=== PATIENT | male | born 1955 | race Caucasian/White ===

== ENCOUNTER → 2017-03-17 | Outpatient (CLI) | payer MEDICARE ==
[~2017-03-17] MED LIST: AFRIN15 ML NOSE; ALKALETE PO; AMBROTOSE PO; ASCORBIC ACID500 MG PO; ASPIRIN EC81 MG PO; ASPIRIN325 MG; CEFADROXIL1 GM PO; CLARITIN10 MG PO; CPAP; DIGOXIN; GEMFIBROZIL600 MG PO; GLUCOPHAGE500 MG; GLUCOPHAGE500 MG PO; INDERAL LA60 MG; INDERAL LA60 MG PO; IRON65; IRON65 PO; LANOXIN (DIGI250 MCG PO; LIDEX 0.05%15 GM; LIPITOR80 MG PO; LOPID600 MG; LOVAZA1 GM; MIRAPEX0.25 MG; MOTRIN INF40 MG/1 ML; NASONEX NASAL S17 GM; NORCO 10-325 T1 EACH; NORCO 10-325 T1 EACH PO; NORVASC10 MG PO; NORVASC5 MG; OMEGA 3 500 SO1 EACH PO; PRENATAL 1+1)(P1 TAB; PRILOSEC10 MG; PRILOSEC20 MG PO; PROZAC40 MG; PROZAC40 MG PO; SLO-NIACIN250 MG; SLO-NIACIN500 MG PO; TAB-A-VITE1 EACH PO; VITAMIN C60 MG; VITAMIN D1000 UNIT; VITAMIN D1000 UNIT PO; ZYRTEC10 MG
== END ==
LOC: LGSMG 17:08
DX: L03.115 Cellulitis of right lower limb (principal); L97.509 Non-pressure chronic ulcer of other part of unspecified foot with unspecified severity

== ENCOUNTER → 2017-03-19 | Outpatient (CLI) | payer MEDICARE | END | disposition disaster alternative care site (69) | LOC: GRAD 11:50 | DX: L03.115 Cellulitis of right lower limb (principal); L97.509 Non-pressure chronic ulcer of other part of unspecified foot with unspecified severity; R93.8 Abnormal findings on diagnostic imaging of other specified body structures | CPT/HCPCS: A9503 ==

== ENCOUNTER 2017-04-15 14:00 | Inpatient (IN) | payer MEDICARE ==
[~2017-04-15] VITALS: Ht 176 cm; Wt 105.4 kg
--- NOTE | ~2017-04-15 | DS ---
PATIENT'S NAME: YANCI PALMA [facility] AGE: 62 Y [address] ROOM: G6313 [place], [place] [address] LOCATION: GPCU ADMIT DATE: 04/20/2017 Discharge Summary DISCHARGE DATE: 04/28/2017 FAMILY PHYSICIAN: Griselda Mueller DO ATTENDING PHYSICIAN: Kianna Tan DIAGNOSES: 1. Stage IV adenocarcinoma of the right colon. 2. Supraventricular tachycardia. 3. Bradycardia. 4. Acute respiratory failure with hypoxia. 5. Sleep apnea. SUMMARY: Stef Palma is a 62-year-old male, who initially was seen in [place] in the emergency room due to recurrent SVT. He mentioned the fact that he has been having abdominal pain and the CT scan was obtained that showed some thickening of the ascending colon with some inflammatory changes of the surrounding fat as well as some enlarged lymph nodes and a small amount of ascites. No other signs for metastatic disease were noted. The patient was seen by Dr. Tan at [facility] in consultation on April 06, 2017. Recommendation for colonoscopy was made along with potential colon resection. The patient proceeded with a colonoscopy on April 08 followed by admission to [facility] on April 20. The patient was admitted to [facility] on the morning of April 20 to undergo a right colon resection with Dr. Tan. Invanz 1 g IV was given preoperatively. Preop hemoglobin was 9.6. Anesthesia opted to give 1 unit of packed red blood cells prior to the start of the procedure. We proceeded with laparoscopy converted to an open right colon resection. The liver biopsy and biopsy of peritoneal implant were obtained during the laparoscopy. Please see Dr. Tan' operative note for specifics. Postoperatively, the usual postop orders were followed with activity as tolerated. He was kept n.p.o., Scott was placed to dependent drainage. Lovenox was ordered for DVT prophylaxis. Morphine ENTRY DRIVER OPERATOR along with IV acetaminophen were ordered for pain control. On postop day 1, the patient's pain was adequately controlled. His hemoglobin was 9.9. Vital signs were stable. His Scott catheter was removed and he was allowed sips of clear liquids. On postop day #2, the patient was noted to have some bradycardia and subsequently had lightheadedness with this. Dr. Walker was consulted. The patient was advanced to clear liquid diet. On postop day 3, the patient continued to do well from a surgical standpoint and his ENTRY DRIVER OPERATOR was discontinued. Atwood and IV Dilaudid were ordered for pain control. A diet was advanced to full liquids. He did have a bout of SVT, which responded to adenosine. The patient was transferred to the progressive care unit following this episode. The patient continued to be followed by Cardiology, and did have a couple other episodes of the SVT. He was advanced to surgical soft diet. He was mobilized. He remained on 2-3 L of oxygen by nasal cannula, PATIENT'S NAME: YANCI PALMA [facility] AGE: 62 Y [address] ROOM: [place] [address] LOCATION: GPCU ADMIT DATE: 04/20/2017 Discharge Summary DISCHARGE DATE: 04/28/2017 FAMILY PHYSICIAN: Griselda Mueller DO ATTENDING PHYSICIAN: Kianna Tan which we were unable to wean off. Respiratory Therapy was asked to evaluate for home O2. Arrangements were made for the patient to discharge home on April 27. DISCHARGE INSTRUCTIONS: Included no restrictions on diet. No heavy lifting. He will follow up with Dr. Tan in eight days for staple removal. An appointment was made with Dr. Sarkar in [place] at [facility] on May 05 for consideration of ablation. He is to follow up with Dr. Mueller in 1-2 weeks and a consultation with Dr. Daley was set up for May 07. DISCHARGE MEDICATIONS: Include; 1. Alkalete one capsule p.o. twice daily. 2. Ambrotose two tablets p.o. daily. 3. Vitamin D3, 1000 units p.o. daily. 4. Norvasc was increased to 10 mg p.o. daily dispensing 30 with 2 refills. 5. Aspirin 81 mg p.o. daily. 6. Lipitor was added, 80 mg p.o. daily dispensing 30 with 2 refills. 7. Gemfibrozil was discontinued. 8. Cefadroxil 500 mg p.o. daily with the last day being July 20. 9. Lanoxin 250 mcg p.o. daily. 10. Prozac 40 mg p.o. daily. 11. Prilosec 20 mg p.o. daily. 12. Inderal LA 60 mg b.i.d. dispensing 60 with 6 refills. 13. Glucophage 500 mg p.o. twice daily. 14. Iron 65 mg p.o. daily. 15. Multivitamin one tablet p.o. daily. 16. Mcrae Helena-3 was discontinued. 17. Ascorbic acid 500 mg p.o. 3 times a day. 18. Claritin 10 mg p.o. daily. 19. Afrin one puff nose twice daily. 20. CPAP device. 21. Prescription for Atwood 10/325 one p.o. q.4 hours p.r.n. pain dispensing 30 with no refills was given. 22. Home O2 was also set up prior to discharge at 2-3 L by nasal cannula. Final pathology results showed adenocarcinoma grade 3/3 of the ascending colon, metastatic adenocarcinoma in 12 of 17 mesenteric lymph nodes. There is metastatic adenocarcinoma in both the liver biopsy and peritoneal biopsy. For specifics on day-to-day care please refer to the hospital chart. SANTIAGO LONG PA-C FOR KIANNA TAN MD PATIENT'S NAME: YANCI PALMA [facility] AGE: 62 Y [address] ROOM: [place] [address] [facility] ADMIT DATE: 04/20/2017 Discharge Summary DISCHARGE DATE: 04/28/2017 FAMILY PHYSICIAN: Griselda Mueller DO ATTENDING PHYSICIAN: Kianna Tan/jairl /[id number] d: 05/05/17 0413 t: 05/06/17 0923, DISCHARGE SUMMARY
--- NOTE | ~2017-04-15 | CON ---
PATIENT'S NAME: YANCI PALMA [facility] AGE: 62 Y [address] ROOM: [place] [address] [facility] ADMIT DATE: 04/20/2017 Consultation DISCHARGE DATE: FAMILY PHYSICIAN: Griselda Mueller DO ATTENDING PHYSICIAN: Jagdish Tan DATE OF CONSULTATION: 04/22/2017 HISTORY OF PRESENT ILLNESS: Mr. Palma is a 62-year-old male patient of Dr. Tan, who had recently a laparoscopic colon mass surgery. Today, he was ambulating, and began to have some nauseas. At that time, it appears as if he was in second-degree and third-degree blocks, with the heart rates in the 20s and 30s. He did not have any syncope. He did become lightheaded and sweaty. The patient has a history of supraventricular tachycardia in the past for a number of years. He has been on propranolol and digoxin. The patient has history of hypertension and elevated cholesterol. He is an ex- smoker. There is no family history of premature coronary artery disease or diabetes. There is no prior history of AR or angina or nitroglycerin use. There is no history of rheumatic fever, heart murmur, heart failure, dilated or enlarged heart, or any diagnosed arrhythmias other than the SVT. 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 There was no paroxysmal nocturnal dyspnea or orthopnea. He denies lightheadedness or dizziness up until now. There is no history of ankle swelling. CURRENT MEDICATIONS: 1. Amlodipine 5 mg a day. 2. Cefadroxil 500 mg a day. 3. Digoxin 250 mg a day. 4. Prozac 40 mg a day. 5. Gemfibrozil 600 mg b.i.d. 6. Metformin 500 mg b.i.d. 7. Propranolol 60 mg once a day. 8. Omeprazole 20 mg a day. 9. Aspirin 325 mg a day. 10. Iron. 11. Multivitamin. 12. Phillips-3. PATIENT'S NAME: YANCI PALMA [facility] AGE: 62 Y [address] ROOM: [place] [address] LOCATION: GPCU ADMIT DATE: 04/20/2017 Consultation DISCHARGE DATE: FAMILY PHYSICIAN: Griselda Mueller DO ATTENDING PHYSICIAN: Jagdish Tan 13. Niacin 500 mg a day. 14. Alkylate and Ambrotose. 15. Ascorbic acid. 16. Vitamin D3. 17. Loratadine. 18. Hydrocodone/acetaminophen two tablets every 4 hours p.r.n. 19. Afrin nasal spray. 20. CPAP. ALLERGIES: NO KNOWN DRUG ALLERGIES. PAST MEDICAL HISTORY: 1. History of multiple trauma and surgeries. 2. Head injury. 3. 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 4. Seasonal allergies. 5. History of tinnitus. 6. History of dentures. 7. History of atrial fibrillation after surgery. 8. Sleep apnea. 9. DJD. 10. Osteomyelitis. 11. GERD. 12. Abdominal pain. SOCIAL HISTORY: The patient is . He denies abusing alcohol. His appetite and weight have been stable. Sleep is fair. FAMILY HISTORY: No premature coronary artery disease. REVIEW OF SYSTEMS: 1. Arthritis. 2. Heartburns. 3. Some depression. PHYSICAL EXAMINATION: VITAL SIGNS: His blood pressure is 120/60, heart rate is in the 60s and regular, respirations are 16, afebrile, and he is on 4 L of oxygen. HEENT: Normal. NECK: Supple with no JVD or thyromegaly or lymphadenopathy or carotid bruit. HEART: PMI is not well located. First and second heart sounds are distant. There are no added sounds or murmurs. PATIENT'S NAME: YANCI PALMA [facility] AGE: 62 Y [address] ROOM: [address] [place] [address] LOCATION: GPCU ADMIT DATE: 04/20/2017 Consultation DISCHARGE DATE: FAMILY PHYSICIAN: Griselda Mueller DO ATTENDING PHYSICIAN: Jagdish Tan CHEST: Clear to auscultation. ABDOMEN: Soft. EXTREMITIES: Revealed no edema. CENTRAL NERVOUS SYSTEM: Intact. ASSESSMENT AND PLAN: A 62-year-old male patient, who had second-degree and third-degree blocks at the time when he was nauseated. I am not sure which one came first. He is currently on digoxin as well as propranolol. He has a history of supraventricular tachycardia as well as atrial fibrillation at the time of surgery. We will rule him out for myocardial infarction, check his TSH, check his digoxin level, and follow up in the morning. Again, I appreciate this opportunity to participate in the care of Mr. Palma. MD VICENTE ROMERO/mallory /[id number] d: 04/23/172 t: 04/27/17 1350, CONSULTATION REPORT
--- NOTE | ~2017-04-15 | CON ---
PATIENT'S NAME: YANCI GORMAN [facility] AGE: 62 Y [address] ROOM: [address] [address] LOCATION: [facility] ADMIT DATE: 04/20/2017 Consultation DISCHARGE DATE: FAMILY PHYSICIAN: Griselda Mueller DO ATTENDING PHYSICIAN: Jagdish Tan DATE OF CONSULTATION: 04/21/2017 REFERRING PHYSICIAN: Jagdish Tan MD REASON FOR CONSULTATION: History of multiple recurrent skin infections in the lower extremity. HISTORY OF PRESENT ILLNESS: This is a 62-year-old gentleman who has been followed by our service in the clinic. I saw him last time on March 17, 2017, for multiple recurrent right leg skin wounds and cellulitis. At that time, the patient had a draining wound on the right great toe, and so I started cefadroxil 500 mg p.o. twice a day and complete a total 14 days followed by 500 mg daily as a chronic prevention. Also, I checked a bone scan of right foot too around March 19, 2017, that mentioned that an abnormal bone scan which showed increased activity at the right great toe, osteomyelitis is not excluded. However, the patient came in to the hospital because they found that the patient had a colon cancer, now had right colon resection and aspiration of ascites and biopsy of peritoneal implant and liver biopsy done, which was done on April 20, 2017. The patient is supposed to come back to me to the clinic today, but now in the hospital, so they asked me to come and check him in the hospital. The patient said the wound on the great toe is all healed. The patient was seen by the [facility], doing great, has been taking cefadroxil 500 mg p.o. once a day. Denies fever or chills. Had a pain in the surgery site. No cough or mucus. ALLERGIES: NO KNOWN DRUG ALLERGIES. PAST MEDICAL HISTORY: History of right lower extremity fracture, multiple surgeries in the past, recurrent cellulitis and skin lesions on the right lower extremity, recently found to have colon cancer, paroxysmal atrial fibrillation, type 2 diabetes, and hypertension. FAMILY HISTORY: Noncontributory. SOCIAL HISTORY: Ex-smoker. PATIENT'S NAME: YANCI GORMAN [facility] AGE: 62 Y [address] ROOM: [address] [address] LOCATION: [facility] ADMIT DATE: 04/20/2017 Consultation DISCHARGE DATE: FAMILY PHYSICIAN: Griselda Mueller DO ATTENDING PHYSICIAN: Jagdish Tan CURRENT MEDICINE: Antibiotic mancini, he has been on cefadroxil 500 mg daily. REVIEW OF SYSTEMS: As above. PHYSICAL EXAMINATION: VITAL SIGNS: Blood pressure 132/71, pulse rate 59, respirations 17, and temperature 97.9. GENERAL: In NAD. HEENT: Conjunctivae pink. Sclerae not icteric. NECK: Supple. LUNGS: Clear to auscultation bilaterally. HEART: Regular rhythm and rate. ABDOMEN: Bowel sounds positive. Wound on dressing. EXTREMITIES: Right lower extremity wound all healed and right great toe wound all heeled. No warmth or swelling noted. SKIN: No rash noted. LABORATORY DATA: White blood cells 8.2, hemoglobin 9.9, and platelets 273. BUN 13 and creatinine 0.6. On 17 of March, right foot culture, nothing grew. Bone scan done on March 19, 2017, showed that abnormal bone scan showed increased activity at the right great toe, osteomyelitis is not excluded. ASSESSMENT AND PLAN: This patient has a history of right leg fracture; multiple surgeries; and then had a recurrent multiple skin infections and wounds, most recently right great toe wound; history of methicillin-sensitive Staphylococcus aureus culture in the past, but this time when I repeated nothing grew. The patient was restarted on cefadroxil on of March 17, 2017, and has been on 500 mg daily as a chronic prophylaxis. The patient now is found to have colon cancer, status post surgery done yesterday and plan to do a chemotherapy too. There is a concern about right great toe osteomyelitis, but the wound healed very well and no signs of active infection at this point, and considering the patient's general condition, we discussed and we decided to continue chronic prophylaxis with cefadroxil, but we increased it to 500 mg p.o. twice a day, especially with anticipating chemotherapy. RECOMMENDATIONS: We will continue p.o. cefadroxil 500 mg twice a day at least for several months and follow up at ID clinic in 1 month, and the patient and family agree with this plan. PATIENT'S NAME: YANCI GORMAN [facility] AGE: 62 Y [address] ROOM: [address] [place], [place] [address] LOCATION: [facility] ADMIT DATE: 04/20/2017 Consultation DISCHARGE DATE: FAMILY PHYSICIAN: Griselda Mueller DO ATTENDING PHYSICIAN: Jagdish Tan FISHONG MD ADAL ROJO/mallory /[id number] d: 04/21/172007 t: 04/22/17 0824, CONSULTATION REPORT
--- NOTE | ~2017-04-15 | ECHO ---
Transthoracic Echocardiography Report (TTE) Demographics Patient Name YANCI GORMAN Date of Study 04/23/2017 Patient Number [id number] Visit Number [id number] Date of 1955 Room Number G6313 Gender Male Number Age 62 year(s) Referring Denise Funez Restaurant Area Director Estephanie Harris RDCS, Physician RVT Ami Ross MD Physician Interpreting Denise Funez Offset Proof Press Operator Physician MD Supervising Ordering Denise Funez MD/MLP Physician Nurse Stress Lease Purchase Driver Conclusions Contractility Score Summary Normal Left Ventricular contractility was noted. Summary Technically difficult exam. The estimated left ventricular ejection fraction is 55-60% with normal internal dimension,EF and WM. Mild concentric left ventricular hypertrophy. The left atrium is mildlyldilated by LA volume index measurement. Moderate mitral annular calcification. Trace TR with with the pulmonary pressures in the mid 30. Procedure Type of Study TTE procedure:2D Echocardiogram, Echo with Contrast. Procedure Date Date: 04/23/2017 Start: 12:16 PM Study Location: Inpatient Portable Technical Quality: Limited visualization due to body habitus. Indications:Bradycardia. Appropriate Use Criteria: 9 Patient Status: Routine Contrast Medium: Definity. Amount - 5 ml HR: 90 bpm BP: 196/105 mmHg M-Mode/2D Measurements LV Diastolic Dimension: 3.99 cm LV Systolic Dimension: 1.98 cm LV Septum Diastolic: 1.08 cm LV PW Diastolic: 1.18 cm Cardiac Output: 9.19 l/min LA volume: 77 ml RV Diastolic Dimension: 3.64 cm LVOT: 2.3 cm LVOT VTI: 24.6 cm LV Stroke volume: 102.16 ml RV Mid: 2.87 cm RV Length: 7.09 cm TAPSE: 2.77 cm TDI-S': 19.1 cm/s Doppler Measurements AV Peak Velocity: 1.67 m/s MV Peak E-Wave: 0.66 m/s AV Peak Gradient: 11.16 mmHg MV Peak A-Wave: 0.87 m/s AV Mean Gradient: 7 mmHg MV E/A Ratio: 0.76 LVOT Peak Velocity: 1.28 m/s MV Deceleration Time: 289 msec TR Velocity:2.73 m/s PV Peak Velocity: 1.07 m/s TR Gradient:29.81 mmHg PV Peak Gradient: 4.58 mmHg Estimated RAP:5 mmHg Estimated PASP: 34.81 mmHg Estimated RVSP: 35 mmHg A' Septal Velocity: 0.11 m/s E' Septal Velocity: 0.06 m/s A' Lateral Velocity: 0.17 m/s E' Lateral Velocity: 0.1 m/s Findings Left Ventricle Mild concentric left ventricular hypertrophy with normal internal dimension,EF and WM. Right Ventricle Normal right ventricle structure and function. Left Atrium The left atrium is mildly dilated by LA volume index measurement. Right Atrium Normal right atrial size. Mitral Valve Moderate mitral annular calcification. Trivial mitral regurgitation by color Doppler. Aortic Valve Normal aortic valve structure and function. Tricuspid Valve Trivial tricuspid regurgitation by color Doppler. Pulmonic Valve Normal pulmonic valve structure and function. Pericardial Effusion No evidence of pericardial effusion. Miscellaneous Visualized portions of the aortic root and ascending aorta appear normal in size. Pleural Effusion No evidence of pleural effusion. Contractility Score LV regional wall motion:(0-Non visualized 1-Normal 2-Hypokinesis 3-Akinesis 4-Dyskinesis 5-Aneurysm) Signature dtt: Dee Dee Walker dtd: 04/23/17 1216 Physician Self Edit
--- NOTE | ~2017-04-15 | OR ---
PATIENT'S NAME: YANCI GORMAN [facility] AGE: 62 Y [address] ROOM: [place] [address] [place] [facility] [place] DATE: 04/20/2017 OR/Procedure Report DISCHARGE DATE: FAMILY PHYSICIAN: Griselda Mueller DO ATTENDING PHYSICIAN: Kianna Tan SURGEON: Kianna Tan MD EXTRUSION PROCESS OPERATOR: Aure Dick PA-C. DATE OF PROCEDURE: 04/20/2017 PREOPERATIVE DIAGNOSIS: Right colon cancer. POSTOPERATIVE DIAGNOSES: 1. Large bulky right colon cancer with extension all the way down to the aorta and some encasement of the aorta. 2. Whtdg-wt-qjquhaha amount of ascites. 3. Multiple liver lesions involving the left and right lobes of the liver that grossly appeared consistent with malignancy. 4. Peritoneal implants consistent with metastatic malignancy. PROCEDURE PERFORMED: 1. Laparoscopic exploration with aspiration of ascites as well as biopsy of peritoneal implant and liver biopsy. 2. Open right colon resection. ANESTHESIA: General endotracheal. ESTIMATED BLOOD LOSS: 100 mL. SPECIMEN: 1. Right colon. 2. Liver biopsy. 3. Peritoneal implant biopsy. REASON FOR PROCEDURE: The patient is a 62-year-old male, who recently had a CT scan showing a right colon mass as well as some enlarged nodes and a small amount of ascites. A colonoscopy confirmed an adenocarcinoma of the ascending colon. We decided to proceed with exploration and resection of this. FINDINGS: On initial laparoscopy, he was noted to have a qqobd-tf-grvahlsw amount of green ascites. Multiple small liver nodules were noted consistent with metastatic disease. The largest was in the right lobe of the liver and measured 2-1/2 cm in diameter. The rest were much smaller than this. Several peritoneal implants were noted in the right upper abdomen. The tumor itself was quite bulky and had essentially one large mass extending all the way down along the vessels, down to the aorta, and partially encompassing the aorta. PATIENT'S NAME: YANCI GORMAN [facility] AGE: 62 Y [address] ROOM: [place] [address] [place] [facility] [place] DATE: 04/20/2017 OR/Procedure Report DISCHARGE DATE: FAMILY PHYSICIAN: Griselda Muellre DO ATTENDING PHYSICIAN: Kianna Tan PROCEDURE IN DETAIL: The patient was taken to the operating suite and placed in a supine position. After general endotracheal anesthesia was obtained, the abdomen was prepped with ChloraPrep and sterilely draped. Marcaine was infiltrated into the incision sites. A small infraumbilical incision was made. The fascia was grasped and elevated and a Veress needle was used to obtain a pneumoperitoneum. A 5-mm trocar was then passed across the abdominal wall. Next, a 5-mm upper midline trocar and a right lower quadrant trocar were both placed under direct visualization. The abdomen was explored, small- to-moderate amount of greenish ascites was noted in the pelvis and along the right paracolic gutter. We aspirated this. We then found several nodules on the surface of the liver, consistent grossly with metastatic disease. These involved both the left and right lobe. We cauterized a piece of the largest one measuring about 2 cm in size and sent this to pathology. Several small implants were noted in the anterior and lateral abdominal wall in the right upper quadrant. We biopsied one of these as well. The tumor was noted to be quite bulky and immobile. It was growing into the omentum from the transverse colon as well as direct growth along the vessels. I decided to go ahead and open at this point. A midline incision was made and extended down through the fascia and peritoneum. The bowel was then packed away from the tumor. The peritoneal attachments along the right side were divided with cautery. The proximal transverse colon was mobilized as well. The terminal ileum was somewhat adherent to the tumor and we freed this up, so that everything was fairly mobile. The duodenum was exposed and carefully protected. We divided the small bowel with a TERESE stapler proximal to where there was any tumor involvement. We then divided the proximal transverse colon. Most of the mesentery was divided with the LigaSure device. The difficulty was where there was direct tumor growth all the way down along the right colic artery and vein and unfortunately this direct tumor growth extended all the way down to the aorta with partial encompassment of the aorta. We ended up placing 2 clamps across this, crushing the tumor and the vessels. Then distal to this, we fired a TA stapler. An 0 Vicryl tie and a 2-0 silk tie were then placed across each of the clamps as they were removed. There was no bleeding from this. This was grossly cutting through tumor again but I did not see any other options at this point. The terminal ileum and proximal transverse colon were easily brought into proximity and a iewk-eb-dgls stapled anastomosis was created with the TERESE. The TA stapler was used to close the staple line. A 3- 0 silk suture was placed at the apex of the anastomosis. The mesenteric defect was then closed with interrupted silk sutures. The abdomen was irrigated and all irrigation was removed. The anastomosis appeared viable and patent. The fascia and peritoneum were closed with looped PDS suture. The skin was irrigated and closed with surgical clips. POSTPROCEDURE PLAN: The patient will be sent to recovery and then to the floor. We will keep him on telemetry. We will gradually await return of PATIENT'S NAME: YANCI GORMAN [facility] AGE: 62 Y [address] ROOM: [place] [address] [place] [facility] [place] DATE: 04/20/2017 OR/Procedure Report DISCHARGE DATE: FAMILY PHYSICIAN: Griselda Mueller DO ATTENDING PHYSICIAN: Kianna Tan bowel function. We will follow up on the pathology report. We will start him on a SCHOOL SUPERVISOR for pain control. KIANNA TAN MD JTM/modl /[id number] CC: Griselda Mueller DO d: 04/20/17 1111 t: 04/22/17 0724, OPERATIVE SUMMARY
[~2017-04-15 14:00] MED LIST changes: -LIPITOR80 MG PO
[2017-04-20 06:46] LABS: BASOPHIL % 0.3 %; EOSINOPHIL # 0.1 K/uL (0.0-0.5); EOSINOPHIL % 0.8 %; HEMATOCRIT 30.5 % (37.0-53.0); HEMOGLOBIN 9.6 g/dL (11.0-16.0); IMMATURE GRANULOCYTE # 0.1 K/uL (0.0-0.3); IMMATURE GRANULOCYTE % 0.7 %; LYMPHOCYTE # 0.7 K/uL (0.8-4.0); LYMPHOCYTE % 9.6 %; MCHC 31.5 gm/dL (32.0-36.5); MCV 85.9 fl (83.0-98.0); MONOCYTE # 0.7 K/uL (0.0-1.0); MPV 8.3 fl (9.4-12.4); NEUTROPHIL # (ANC) 6.1 K/uL (1.4-9.0); NEUTROPHIL % 79.6 %; NRBC % 0 /100WBC (0-0.00); PLATELET COUNT 332 K/uL (150-450); RBC 3.55 M/uL (3.50-5.50); RDW-CV 13.9 % (11.9-14.6); WBC 7.7 K/uL (4.0-11.0)
[2017-04-20 07:10] LABS: ALBUMIN 2.7 gm/dL (3.5-5.0); ALK PHOS 96 IU/L (33-138); ALT 25 IU/L (12-78); ANION GAP 13.7 (10.0-19.0); AST 24 IU/L (10-40); BLOOD UREA NITROGEN 12 mg/dL (6-24); CALCIUM 8.6 mg/dL (8.5-10.5); CHLORIDE 97 mMol/L (96-110); CO2 27 mMol/L (22-32); CREATININE 0.7 mg/dL (0.6-1.3); ESTIMATED GFR (MDRD EQUATION) > 60; POTASSIUM 3.7 mMol/L (3.7-5.1); SODIUM 134 mMol/L (135-145); TOTAL BILIRUBIN 0.4 mg/dL (0.0-1.5); TOTAL PROTEIN 7.4 g/dL (6.0-8.4)
--- NOTE | 2017-04-20 16:08 | NUR ---
Significant Event: Pt is a/o. Cooperative with cares. Received from pacu @ 1340. Will have 2nd hourly vs due @ 1830. [employer] SECURITY TEAM LEAD. ETCO2 monitoring. O2 4L. Using IS. Abd dressing intact with small shadow drainage marked. Scott patent. Pneumatic stockings on. Accuchecks q 6 hr. 04/01. Tele, no calls. Uses cpap @ hs. Follow up:
--- NOTE | 2017-04-21 05:04 | NUR ---
Significant Event: OMAR IS ALERT AND OREINTED X3 AMBULATES WITH GB WALKER AND 1-2 ASSIST. VSS WNL. B/S STILL ABSENT. ON 5L OF O2. MORPHINE SUPPLY CHAIN PROJECT MANAGER PUMP TOOK 23 DEMAND DOSES THIS SHIFT. CPAP HS. ACCUCHECK Q 6 HRS NO INSULIN GIVEN. VELA INTACT YELLOW URINE DRAINING. NPO CHIPS ONLY. IV TO LFA AND R HAND SL. TELE WITH NO CALLS. ABDOMINAL DRESSING INTACT WITH SHAWDOW DRAINAGE MARKED. Follow up:
[2017-04-21 05:35] LABS: HEMATOCRIT 31.4 % (37.0-53.0); HEMOGLOBIN 9.9 g/dL (11.0-16.0); MCH 27.7 pg (27.0-34.0); MCHC 31.5 gm/dL (32.0-36.5); MPV 8.1 fl (9.4-12.4); RBC 3.57 M/uL (3.50-5.50); WBC 8.2 K/uL (4.0-11.0)
[2017-04-21 05:51] LABS: ANION GAP 13.4 (10.0-19.0); BLOOD UREA NITROGEN 13 mg/dL (6-24); CHLORIDE 105 mMol/L (96-110); CO2 23 mMol/L (22-32); CREATININE 0.6 mg/dL (0.6-1.3); ESTIMATED GFR (MDRD EQUATION) > 60; POTASSIUM 4.4 mMol/L (3.7-5.1); SODIUM 137 mMol/L (135-145)
--- NOTE | 2017-04-21 11:06 | NUR ---
Patient seen during hospititalization for colon resection. R) medial great toe wound healed with dry scab. No reddness to bony prominences of bilateral ft/heels. Pt. states he had his boots stretched over bony prominences. No further WOC outpt.
--- NOTE | 2017-04-21 14:34 | NUR ---
Patient is alert and oriented x3. Patient has drsng to R) upper abdomen and drsng to medial lower abdomen, small shadow of drainage outlined on 04/20/17. Titrated O2 from 5L to 1L and stable. PRODUCE ASSOCIATE morphine 1mL continuous, 1mL demand with 6 min lockout. Patient has D5 1/2 NS with KCl at rate of 100mL/hr to L) forearm IV. Physician order for sips of clear liquids and to d/c jordan. at bedside. Ambulated with 1PA. Bowel sounds present, no flatus yet. Q6H accu checks. Telemetry with no calls. Wears CPAP at HS. Follow Up: Ambulation. Void after jordan removal.
--- NOTE | 2017-04-21 14:45 | NUR ---
SPOKE TO PATIENT AND HIS SPOUSE AT THE BEDSIDE. INTRODUCED CM AND OUR ROLE.PATIENT LIVES IN OWN HOME WITH SPOUSE, THE PLAN IS PATIENT WILL RETURN HOME WITH HELP FROM SPOUSE ONCE HE IS READY FOR DISCHARGE. HE HAS ALL HIS DME AND HE DOES NOT ANTICIPATE ANY DISCHARGE NEEDS AT THIS TIME. CM WILL CONT TO FOLLOW NEEDED.
--- NOTE | 2017-04-21 18:11 | NUR ---
I HAVE REVIEWED AND AGREE WITH CHARTING COMPLETED BY [facility] STUDENT JOSE ANGEL CORONADO FROM [phone] DARELL FOUNTAIN
--- NOTE | 2017-04-22 07:15 | NUR ---
Significant Event: ALERT ORIENTATED X3, AMBULATES WITH STANDBY ASSIST GB. LIQUID DIET, ACCUCHECK Q 6 HR. MORPHINE POCKET SETTER PUMP 1 ML CONTINOUS, 1 ML DEMAND 6 MINUTE LOCKOUT, TOOK 22 DOSES WITH 27 REQUESTS. IV RUNNING TO L FA WITH D5 1/2 NS WITH KCL AT 100ML/HR. O2 AT 2L. CPAP AT HS. DRESSING TO UPPER ABDOMEN AND MEDIAL LOWER ABDOMEN DRAINAGE OUTLINED. AT BEDSIDE. Follow up:
--- NOTE | 2017-04-22 19:19 | NUR ---
Significant Event: PT AO. VSS ON 1L O2, AFEBRILE. MORPHINE NURSING CARE ATTENDANT RUNNING 1 DEMAND, 1 CONTINUOUS, 6MIN LOCKOUT. TOTAL 11DEMANDS, 10 DELIVERIES. ETCO2 MONITORING ON. TELEMETRY ON, CALL THIS AM FOR HR OF 32, 3RD DEGREE HEART BLOCK. PT WAS UP AMBULATING WITH STUDENT, BECAUSE LIGHTHEADED, NAUSEATED AND DIAPHORETIC AT THE TIME. MD NOTIFIED- CONSULTED CARDIOLOGY. CONSULT CALLED BY CHARGE NURSE CORNELL, NO MD HAS CAME TO SEE PT OF YET. 2 DRESSING TO PT ABDOMEN, C/D/I. PT REPORTS PASSING FLATUS. Q6 ACCUCHECKS. TOLERATING SMALL AMOUNT OF CLEAR LIQUID DIET. IVF RUNNING TO L FA AT 50ML/HR. SL TO R HAND. AMBULATES WITH 1PA, GAITBELT. AT BEDSIDE. Follow up: CONTINUE TO MONITOR, AMBULATE
--- NOTE | 2017-04-22 19:22 | NUR ---
I HAVE REVIEWED AND AGREE WITH CHARTING COMPLETED BY [facility] STUDENT JOSE ANGEL CORONADO FROM [phone] DARELL FOUNTAIN
--- NOTE | 2017-04-23 02:11 | NUR ---
SIGNIFICANT EVENT: Hypertensive - 154 to 169 over 73 to 86. Other VSS on 2L. Morphine SPORTS FITNESS AND WELLNESS DIRECTOR - 1 continuous, 1 demand, 6 minute lockout. Bilateral PIV's to R) hand, L) FA. L) FA infusing D5 1/2 with 20 KCl. Tele calls during day shift on 04/22/17 indicating periods of bradycardia and heart block. EKG done this evening. Q6h accuchecks. Wears his CPAP from home at HS. 2PA d/t dizziness/nausea when up, this also seems to be when he has the periods of bradycardia. at bedside beginning of shift. Pleasant and cooperative with cares.
[2017-04-23 05:03] LABS: BASOPHIL % 0.3 %; EOSINOPHIL # 0.1 K/uL (0.0-0.5); EOSINOPHIL % 2.2 %; HEMATOCRIT 34.3 % (37.0-53.0); HEMOGLOBIN 10.8 g/dL (11.0-16.0); IMMATURE GRANULOCYTE % 0.7 %; LYMPHOCYTE # 0.6 K/uL (0.8-4.0); LYMPHOCYTE % 9.2 %; MCH 27.1 pg (27.0-34.0); MCHC 31.5 gm/dL (32.0-36.5); MONOCYTE # 0.6 K/uL (0.0-1.0); MONOCYTE % 9.7 %; MPV 8.2 fl (9.4-12.4); NEUTROPHIL # (ANC) 4.7 K/uL (1.4-9.0); NEUTROPHIL % 77.9 %; NRBC % 0 /100WBC (0-0.00); PLATELET COUNT 262 K/uL (150-450); RBC 3.99 M/uL (3.50-5.50); RDW-CV 14.4 % (11.9-14.6)
[2017-04-23 05:18] LABS: ANION GAP 15.6 (10.0-19.0); BLOOD UREA NITROGEN 11 mg/dL (6-24); CALCIUM 8.2 mg/dL (8.5-10.5); CHLORIDE 100 mMol/L (96-110); CO2 24 mMol/L (22-32); CREATININE 0.5 mg/dL (0.6-1.3); ESTIMATED GFR (MDRD EQUATION) > 60; MAGNESIUM 2.2 mg/dL (1.8-2.6); POTASSIUM 3.6 mMol/L (3.7-5.1); SODIUM 136 mMol/L (135-145)
--- NOTE | 2017-04-23 08:31 | NUR ---
A - NUTRITION F/U. K+ 3.6, GLU 117, BUN/[place] PADDER BLINDSTITCH 11/0.5. PT W/ 2+ EDEMA TO BLE. (+) BS AND FLATUS. DIET: CLEAR LIQUID W/ ENSURE CLEAR TID. TOLERATING SIPS. D - AT RISK W/ INADEQUATE ORAL INTAKE R/T DECREASED APPETITE AND LIQUID DIET AEB INTAKE RECORD. I - GOAL: 50% OR BETTER INTAKE DIET ADVANCES. M/E - WILL CONT TO MONITOR ORAL INTAKE DIET ADVANCES. WILL F/U IN 2-4 DAYS.
[2017-04-23 08:44] LABS: BASOPHIL % 0.2 %; EOSINOPHIL # 0.1 K/uL (0.0-0.5); EOSINOPHIL % 1.2 %; HEMATOCRIT 35.6 % (37.0-53.0); HEMOGLOBIN 11.3 g/dL (11.0-16.0); IMMATURE GRANULOCYTE # 0.1 K/uL (0.0-0.3); IMMATURE GRANULOCYTE % 0.9 %; LYMPHOCYTE # 0.6 K/uL (0.8-4.0); LYMPHOCYTE % 9.6 %; MCH 27.3 pg (27.0-34.0); MCHC 31.7 gm/dL (32.0-36.5); MONOCYTE # 0.6 K/uL (0.0-1.0); MONOCYTE % 8.8 %; NEUTROPHIL # (ANC) 5.1 K/uL (1.4-9.0); NEUTROPHIL % 79.3 %; NRBC % 0 /100WBC (0-0.00); PLATELET COUNT 298 K/uL (150-450); RBC 4.14 M/uL (3.50-5.50); RDW-CV 14.4 % (11.9-14.6); WBC 6.5 K/uL (4.0-11.0)
[2017-04-23 09:04] LABS: ANION GAP 14.8 (10.0-19.0); CALCIUM 8.2 mg/dL (8.5-10.5); CHLORIDE 100 mMol/L (96-110); CO2 25 mMol/L (22-32); POTASSIUM 3.8 mMol/L (3.7-5.1); SODIUM 136 mMol/L (135-145)
[2017-04-23 09:12] LABS: ALK PHOS 96 IU/L (33-138); ALT 22 IU/L (12-78); AST 25 IU/L (10-40); BLOOD UREA NITROGEN 12 mg/dL (6-24); CPK 34 IU/L (35-332); CREATININE 0.5 mg/dL (0.6-1.3); ESTIMATED GFR (MDRD EQUATION) > 60; TOTAL BILIRUBIN 0.6 mg/dL (0.0-1.5); TOTAL PROTEIN 6.5 g/dL (6.0-8.4)
[2017-04-23 09:16] LABS: ALBUMIN 2.3 gm/dL (3.5-5.0)
--- NOTE | 2017-04-23 10:12 | NUR ---
D: Tele called around 0755 and states pt is tachycardiac at 152. Upon assessment, pt is diaphoretic/pale, nauseated, and did not feel well. Initial VS were 134/70, 152,24,94% 2l, 97.6. Rapid response initiated at 0800. See VS sign screen for all VS. EKG done, pt having SVT, ICU nurse gave Adenosine 6mg IVP at 0810. Post EKG done, pt back to sinus rythym. Pt did c/o chest pain during conversion but stopped within in a minute or less. BP at 0812 was 183/82 pulse 94. Last bp at 0822 was 145/73 pulse 94, 95% on 2 liters. Did drop to 88% briefly so was on 4 liters for a short amount of time. Did Dc AMPHIBIOUS OPERATIONS OFFICER at 0755 per order. Labs were drawn, see results. notified and came to room before moved to PCU. Candelaria Dick PAC in room and Dr. Roque was notified but in clinic so Dr. Robledo was in room as well. Dressing to lower abd intact with small amt of shadow drainage. Accucheck at 0805 was 140. Pt transfered to PCU at 0910.
[2017-04-23 17:03] LABS: CPK 41 IU/L (35-332)
--- NOTE | 2017-04-23 17:03 | NUR ---
Significant Event: A/OX3, VSS ON 2L PER NC. PT. HAS HAD NO SVT SINCE ARRIVAL TO PCU, HR'S REMAIN IN THE 80-90'S, SBP 140-150'S. 1 TAB OF NORCO & ZOFRAN GIVEN AT 1134. ABDOMINAL SURGICAL INCISION AND RLQ PUCTURE SITE IS CLOSED/STAPLED SHUT, DRESSING REMOVED TODAY PER DR. HEARN. PT. GETS UP 1 ASSIST TO CHAIR, BAG BATH TODAY. ETCO2 HAS REMAINED IN THE 30'S SINCE WHITE GOODS APPLIANCE TECH WAS D/C'D THIS AM. HERE IN ROOM. PT. ATE BITES OF [place] DIET AT 1200. Follow up: CONTINUE WITH POC.
[2017-04-23 21:41] LABS: CPK 35 IU/L (35-332)
[2017-04-24 02:58] LABS: CPK 43 IU/L (35-332)
--- NOTE | 2017-04-24 05:11 | NUR ---
significant event: A/O x 3. Up to bathroom several times througout the night with c/o gas pains. walked in the price to try and releif some of the gas pain as well with little releif. [place] given x 2 with the last time at 0400. D5 1/2ns running at 50ml/hr in the right hand. on 2L nc during the day and c-pap per home settings at [facility].
--- NOTE | 2017-04-24 17:09 | NUR ---
Significant Event: Patient A/O X 3. VSS. BP 170-140's HR 80-60's. O2 titrated down to 1 L when awake. O2 at 92%. Pt. 1x assist with gait belt. Up to bathroom and ambulate in hallway with 1x assist, O2 tank, gait belt and wheelchair. C/O abdomen pain. [place] 2 tab x2 last one @ 1338 and plan to give one before shift change. R) hand PIV has D5 1/2 KCL running @ 50 ml/h. Soft Diet. No BM, having small flatulence. Follow up: Continue patient plan of care. Dr. Barnett in [facility] tomorrow. Encourage ambulation and appetite. Possible discharge 04/26 or 04/27.
--- NOTE | 2017-04-25 04:14 | NUR ---
Patient A/Ox3. VSS on RA during day Cpap at HS. One assist. Up in [place] x2. Lungs clear, refused cpap last night wore 2L O2 instead. Bowels hypoactive, passing little gas, and cramping often. Dolph and ambulation for pain with relief noted. Dolph last at 0330. IV to Rt hand 50ml/hr. DC'd IV in LT forearm do to it being sore. Slept well.
--- NOTE | 2017-04-25 04:18 | NUR ---
Patient A/Ox3. VSS on RA during day and Cpap at HS. One assist was up in halls x2. Lungs clear, refused Cpap last night, wore 2l O2 instead. Bowel sounds hypoactive, passing little gas, c/o abd pain. Walking in halls and norco x2 for abd pain with relief noted. Did have nausea after ambulating in price, zofran given x1 with relief noted. IV to Rt hand 50ml/hr. IV to LT forearm DC do to it being sore. Slept well last night.
[2017-04-25 06:27] LABS: HEMATOCRIT 33.7 % (37.0-53.0); HEMOGLOBIN 10.8 g/dL (11.0-16.0); MCH 27.2 pg (27.0-34.0); MCV 84.9 fl (83.0-98.0); MPV 8.2 fl (9.4-12.4); PLATELET COUNT 266 K/uL (150-450); RBC 3.97 M/uL (3.50-5.50); RDW-CV 14.6 % (11.9-14.6); WBC 8.3 K/uL (4.0-11.0)
[2017-04-25 06:56] LABS: ANION GAP 12.8 (10.0-19.0); BLOOD UREA NITROGEN 13 mg/dL (6-24); CALCIUM 8.3 mg/dL (8.5-10.5); CHLORIDE 101 mMol/L (96-110); CO2 27 mMol/L (22-32); CREATININE 0.5 mg/dL (0.6-1.3); ESTIMATED GFR (MDRD EQUATION) > 60; MAGNESIUM 2.2 mg/dL (1.8-2.6); POTASSIUM 3.8 mMol/L (3.7-5.1); SODIUM 137 mMol/L (135-145)
[2017-04-25 06:57] LABS: ABSOLUTE NEUTROPHIL CT (ANC) 7.5 K/uL (1.4-9.0); LYMPHOCYTE # 0.3 K/uL (0.8-4.0); LYMPHOCYTE % 4 %; MONOCYTE # 0.3 K/uL (0.0-1.0); SEGMENTED NEUTROPHIL # 7.5 K/uL (1.4-9.0); SEGMENTED NEUTROPHIL % 90 %
--- NOTE | 2017-04-25 16:20 | NUR ---
Significant Event: Patient A/O X3. VSS. BP 160-140'S HR 60-80'S. Unable to wean completely off O2. Put back on 1L 02 >90%. Ambulated hallways x2. C/O abdomen pain. [place] 2 tab x 2. Last one @ 1230. Plan to give one before shift change. R) hand PIV has D5 1/2 KCL @ 50ml/h. Poor appitite. No BM. Flatulence when voiding. Follow up: Continue patient plan of care. Encourage ambulation and appetite.
--- NOTE | 2017-04-25 19:06 | NUR ---
At approximately 1826 the patient went into SVT with HR's 160-180's. Patient reports heart felt like it was racing, but denies shortness of breath or chest pain. BP stable. Dr. Robledo notified immediately, and Dr. Yee outside of the room and notified. Rapid called. Patient hooked up to defibrillator pads and 6 mg of Adenosine given and patient converted back into sinus rhythm with HR's 80-90's. SBP remain stable 140-160's. Good reponse and communication with ROSS FURNACE OPERATOR. Dr. Robledo and Dr. Barnett, as well as family, updated on patient condition and situation. No further needs at this time. Day and evening or night nurse supervisor RN's present in the room throughout the rapid and witnessed the SVT. [place] RN 04/25/17
--- NOTE | 2017-04-26 04:16 | NUR ---
Patient A/Ox3. VSS on 3L. One assist. Lungs Clear. Bowel sounds present this am and had a moderate loose BM also passing gas. Abdominal incision CDI and open to air. [place] x2 for abdominal pain. Patient had a RR at change of shift SVT HR 170's, adenosine given converted back to sinus rhythm.
--- NOTE | 2017-04-26 13:16 | NUR ---
1145 Introduced self and CM role to Tal and , Esperanza, who was at bedside. tells me that they are interested in getting some paperwork for power of deputy commonwealth's attorney filled out while he is here. I let her know that we had an Advanced Directive Booklet that they could fill out and then I could see if someone from our nursing informatics analyst. could come down and notorize it for them. Let her know that they would only sign medical paperwork and not anything financial. They were fine with this. I called down to nursing informatics analyst. and left a VM for Chelsea to see if she would be able to come up and notorize things this afternoon. Chelsea called me back and shared with me that she would be able to come up and visit with Tal and around 1330. Both Tal and were fine with this time and will have the booklet complete at that time. Plan for dismissal will be for Tal to return back home with the help of his . They are exploring options for him to start chemo closer to home. tells me that he has all of the DME he should need at home (FWW, tub/shower bench, wheelchair, ramp, grabbars). Also denies any needs for any HHC follow up at this time. Tal does all of his own medications at home and gets them filled at the local pharmacy in [place]. He was doing all of his own ADLs at home as well. He is seen by Dr.Julie Mueller as a PCP. Denies any other questions, needs or concerns. CM to continue to follow and assist. Plan home.
--- NOTE | 2017-04-26 17:08 | NUR ---
Significant Event: Pt. A/O X3. VSS. BP's 120-130's HR 60-80's. Attempted RA. O2 < 90%. 02 on 1 L. Small BM early this am. C/O abdomen pain. [place] x 3. Last one given @ 1632. New order for digoxin. Receiving IV doses today and then will start PO tomorrow. Appetite better today. Follow up: Continue Patient plan of care. Encourage appetite and ambulating. Continue to titrate down to RA.
--- NOTE | 2017-04-27 04:23 | NUR ---
Significant Event: Patient is alert/oriented x3. Vital signs stable. No ectopy noted throughout the shift. Unable to wean to room air, he has required 2-3L O2 throughout the night. [place] (one tab) given almost q.4hr PRN around the clock. Abdominal incisions are open to air and stapled. Patient has active bowel sounds in all 4 quadrants and is passing plenty of gas. IVP Digoxin given last night, will be started on PO Digoxin today. Follow up: Patient will need ablation prior to commencing chemotherapy. Dr. Walker does not think he needs pacemaker. Possible dismissal today or tomorrow.
--- NOTE | 2017-04-27 13:04 | NUR ---
A - NUTRITION F/U. NO NEW LABS. DIET: DIABETIC SOFT W/ ENSURE CLEAR TID. INTAKE 25-50% TYPICALLY. PT W/ 1+ EDEMA TO BLE. D - AT RISK W/ INADEQUATE ORAL INTAKE R/T DECREASED APPETITE AEB INTAKE RECORD. I - GOAL: 50% OR BETTER INTAKE BY DISMISSAL. M/E - 1) WILL CHANGE SUPPLEMENT TO GLUCERNA BID. WILL F/U IN 2-4 DAY IF STILL HERE.
--- NOTE | 2017-04-27 13:26 | NUR ---
Talked with in the hallway. She tells me that they did have Chelsea from acute care nursing assistant come up to help them yesterday with the Advanced Directives booklet, but it wasn't all the way complete yet. She also helped guide them and direct them with other questions that they needed answered. wondered about the 5 Wishes booklet as well. I found a copy of this and did get it to her. She states that the plan is still for Tal to return home as soon as possibly tomorrow.
--- NOTE | 2017-04-27 17:28 | NUR ---
Significant event: A&Ox3. VSS. Qualified for home oxygen. [place] x1. Walked in halls x 2. 2 small BM's. Follow Up: Home tomorrow.
--- NOTE | 2017-04-28 04:21 | NUR ---
Significant Event: Patient is alert/oriented x3. Vital signs are stable. Continues on 2-3L O2. [place] last given around 0030, with relief. Ambulated halls x2, tolerated activity well. Follow up: Dismiss to home today.
[2017-04-28] MEDS ORDERED: LIPITOR80 MG PO (15:05)
--- NOTE | 2017-04-28 16:05 | NUR ---
PATIENT DISMISSED HOME VIA PRIVATE AUTO. EDUCATED ON NEW MEDICATIONS AND DOSAGE CHANGES ON SOME OF HIS MEDICATIONS. POST-COLON RESECTION EDUCATION GIVEN TO PATIENT. REFUSED PNEUMONIA VACCINE. DISCUSSED FOLLOW-UP APPOINTMENTS. MD DISCUSSED WITH PATIENT JOSE BENITEZ IF PATIENT GOES INTO SVT AND WHEN TO GO TO THE ER.
== END 2017-04-28 16:08 | disposition disaster alternative care site (69) | DRG 329 ==
LOC: GMSU 04-20 06:02 → GPCU 04-20 06:02 → GMSU 04-20 13:52 → GPCU 04-23 09:02
PROVIDERS: Internal Medicine; Internal Medicine Interventional Cardiology; ADMIT Surgery
PROC: 0DBF0ZZ Excision of Right Large Intestine, Open Approach (ICD-10-PCS; principal; 2017-04-20)
PROC: 30233N1 Transfusion of Nonautologous Red Blood Cells into Peripheral Vein, Percutaneous Approach (ICD-10-PCS; principal; 2017-04-20)
PROC: 0FB04ZX Excision of Liver, Percutaneous Endoscopic Approach, Diagnostic (ICD-10-PCS; principal; 2017-04-20)
PROC: 0W9J4ZZ Drainage of Pelvic Cavity, Percutaneous Endoscopic Approach (ICD-10-PCS; principal; 2017-04-20)
PROC: B246ZZZ Ultrasonography of Right and Left Heart (ICD-10-PCS; 2017-04-23)
PROC: 3E0234Z Introduction of Serum, Toxoid and Vaccine into Muscle, Percutaneous Approach (ICD-10-PCS; 2017-04-28)
DX: C18.2 Malignant neoplasm of ascending colon (principal); J96.01 Acute respiratory failure with hypoxia; R18.8 Other ascites; C78.7 Secondary malignant neoplasm of liver and intrahepatic bile duct; C78.6 Secondary malignant neoplasm of retroperitoneum and peritoneum; C77.2 Secondary and unspecified malignant neoplasm of intra-abdominal lymph nodes; I10 Essential (primary) hypertension; K76.9 Liver disease, unspecified; R00.1 Bradycardia, unspecified; Z23 Encounter for immunization
CPT/HCPCS: C8929; C9113; J0131; J0153; J1160; J1335; J1650; J2001; J2250; J2270; J2405; J3010; J3480; J7030; J7050; P9016; Q9957

== ENCOUNTER 2017-04-29 13:20 | Inpatient (IN) | payer MEDICARE ==
[~2017-04-29] VITALS: Ht 175.3 cm; Wt 98.2 kg
--- NOTE | ~2017-04-29 | DS ---
PATIENT'S NAME: YANCI GORMAN [facility] AGE: 62 Y [address] ROOM: [address] [place], [place] [address] LOCATION: [facility] ADMIT DATE: 04/29/2017 Discharge Summary DISCHARGE DATE: 05/02/2017 FAMILY PHYSICIAN: Griselda Mueller DO ATTENDING PHYSICIAN: Prema Ace PRINCIPAL DIAGNOSES: 1. Narrow complex tachycardia (need for ablation and the patient is being transferred to [place]). 2. Acute hypoxic respiratory failure. 3. Heart failure with preserved ejection fraction, acute on chronic exacerbation. 4. Hospital-acquired pneumonia. 5. Metastatic colon cancer status post resection. 6. Type 2 diabetes mellitus. 7. Obstructive sleep apnea. HOSPITAL COURSE: This is a 62-year-old gentleman with a recent diagnosis of colon cancer, who underwent resection at [facility] a week or so ago, was admitted with palpitations. He was found to have supraventricular tachycardia. Cardiology was consulted on that. In addition to that, he was found to be in acute exacerbation of heart failure. The patient underwent direct current cardioversion for Cardiology. He was put on IV amiodarone drip to control this SVT, with which we had minimal success. He was also treated with Cardizem drip as well as IV digoxin q.6 hours. He required at least one dose of adenosine to convert it back to the normal rhythm. In this hospitalization, we also got a CAT scan of the chest because of hypoxia, which showed no CT finding of pulmonary embolism, significant worsening of the CT appearance of the chest and abdomen since prior imaging in March 2017, large bilateral pleural effusion collection with adjacent lung consolidation, diffuse reticulonodular opacity in the parenchyma of the both lungs which could reflect extensive metastatic involvement, interstitial edema or infiltrate also contributed observed appearance, mediastinal and bilateral hilar adenopathy is noted, small pericardial effusion, and free fluid in the abdomen. During the course of the hospitalization, he was started on broad- spectrum antibiotics to treat for this pneumonia. He was treated with linezolid as well as meropenem. DISCHARGE MEDICATIONS: He will be discharge on all the hospital medications, which would include; 1. Linezolid. 2. Glucose. 3. Dilaudid. 4. Lidocaine for injections. 5. Ondansetron. PATIENT'S NAME: YANCI GORMAN [facility] AGE: 62 Y [address] ROOM: [address] [address] LOCATION: [facility] ADMIT DATE: 04/29/2017 Discharge Summary DISCHARGE DATE: 05/02/2017 FAMILY PHYSICIAN: rGiselda Mueller DO ATTENDING PHYSICIAN: Prema Ace 6. [place]. 7. Dextrose. 8. Glucagon. 9. Loratadine. 10. Pantoprazole. 11. Bactrim, will be discontinued. 12. Digoxin. 13. Lovenox, prophylactic doses. 14. Prozac. 15. Sliding scale insulin. 16. Amiodarone 200 mg p.o. t.i.d. 17. Aspirin. 18. Atorvastatin. 19. Diltiazem drip. 20. Lasix drip. 21. Meropenem. 22. In addition to that, he will be discharged on linezolid IV b.i.d. Cardiology have spoken to their colleagues in [place] at [facility] and they have accepted the patient graciously. PROGRESS NOTE FROM THE DAY OF THE DISCHARGE SUBJECTIVE: The patient is still short of breath, complaining of palpitations. OBJECTIVE: VITAL SIGNS: Vitals included blood pressure of 151/67, respiratory rate of 20, pulse of 108, temperature 99.4, on 50% of high-flow nasal cannula. HEART: Irregular S1 and S2. No murmurs, gallops, or rubs. LUNGS: Decreased air entry bilaterally. Scattered crackles. ABDOMEN: Soft, nontender, and nondistended. Surgical hari noted. EXTREMITIES: No clubbing, cyanosis, or edema. Left great toe missing. LABORATORY DATA: Notable lab work included white count of 18, hemoglobin of 12, and platelets of 313. Chemical panel showed sodium of 134, creatinine of 1.2, BUN 33, potassium 3.2, chloride 91, and bicarb 27. Procalcitonin elevated to 8 from 4. I spent 35 minutes in discharge planning of this patient. Concerns of the family were addressed and questions were answered to their satisfaction. The patient will be transferred by ambulance given his guarded condition as well as prognosis. PATIENT'S NAME: YANCI GORMAN [facility] AGE: 62 Y [address] ROOM: [id number] [place], [place] [address] LOCATION: GICU ADMIT DATE: 04/29/2017 Discharge Summary DISCHARGE DATE: 05/02/2017 FAMILY PHYSICIAN: Griselda Mueller DO ATTENDING PHYSICIAN: Prema Ace MD VERONICA PONCE/mallory /[id number] d: 05/03/17 0034 t: 05/24/17 1009, DISCHARGE SUMMARY
--- NOTE | ~2017-04-29 | CON ---
PATIENT'S NAME: YANCI PALMA [facility] AGE: 62 Y [address] ROOM: [id number] [place], [place] [address] LOCATION: [facility] ADMIT DATE: 04/29/2017 Consultation DISCHARGE DATE: FAMILY PHYSICIAN: Griselda Mueller DO ATTENDING PHYSICIAN: WALTER ACE This is a 62-year-old male patient of Dr. Ace. Dear Dr. Ace: Thank you for asking me to see Mr. Palma who is a 62-year-old male patient who came into the emergency room. He was released yesterday after his surgery for a right colon mass which was a cancer. It is metastatic cancer, and as a result, he is set up to have chemotherapy started in the near future. However, one of the problems has been his history of SVT which has been longstanding and has not bothered him that very often except after his surgery he had several of those including one day he also had significant bradycardia with 2:1 AV block. The patient had always responded to adenosine. He was initially on Inderal LA 60 mg once a day and digoxin 0.25 mg a day. His digoxin level was subtherapeutic and so I just increased the dose of Inderal before he went home. Apparently, he was not able to get all his medications when he got home and today he developed a rapid heartbeat around 11 o'clock and came into the a ER where adenosine was administered with brief regular sinus rhythm which went right back to the rapid heart rhythm which kept occurring at least two or three times. In the meantime, a CAT scan was done, which revealed no evidence of pulmonary emboli but has reticulonodular shadowing and bilateral pleural effusion, which could be due to congestive heart failure as well. He ruled out for [place] as well, but his heart rate was still 140 to 150 when he came to the floor and his oxygen saturation was low, so he was transferred to the intensive care unit. I tried to contact [facility] warehouse stock clerk whom I had set him up to have ablation therapy within about 10 days. However, they were not available at this point. I have administered intravenous amiodarone for now. His blood pressure is in the 120s to 130s and he is sweaty and somewhat uncomfortable at this time. As mentioned earlier, he had postoperatively when he was nauseated, second- degree and third-degree block. The patient has history of hypertension and elevated cholesterol. He is an ex- smoker. There is no family history of premature coronary artery disease and he is not a diabetic. There is no prior history of [place], angina, or nitroglycerin use. [facility] AGE: 62 Y [address] ROOM: [place] [address] LOCATION: [facility] ADMIT DATE: 04/29/2017 Consultation DISCHARGE DATE: FAMILY PHYSICIAN: Griselda Mueller DO ATTENDING PHYSICIAN: WALTER ACE There is no history of rheumatic fever, heart murmur, congestive heart failure. His CT scan did reveal some calcification of his coronaries as well. MEDICATIONS: His discharge medications include, 1. Inderal LA 60 b.i.d. 2. Digoxin 0.25 mg a day. His other medications are unknown at this time. ALLERGIES: NO KNOWN DRUG ALLERGIES. PAST MEDICAL HISTORY: 1. Multiple traumas and surgeries. 2. Head injuries. 3. Memory problems. 4. Seasonal allergies. 5. History of tinnitus. 6. History of dentures. 7. History of atrial fibrillation after surgery. 8. History of sleep apnea. 9. DJD. 10. Osteomyelitis. 11. GERD. 12. Abdominal pains in the past. SOCIAL HISTORY: The patient is . He denies abusing alcohol. His appetite and weight have been stable. Sleep is poor. FAMILY HISTORY: No premature coronary artery disease. REVIEW OF SYSTEMS: 1. Arthritis. 2. Heartburns. 3. Some depression. PHYSICAL EXAMINATION: GENERAL: On examination, the patient is pale, mildly sweaty, uncomfortable, and does not feel good. VITAL SIGNS: Blood pressure is 120s to 130 systolic, heart rate is in the 140s, respirations are 24. [facility] AGE: 62 Y [address] ROOM: [place] [address] LOCATION: [facility] ADMIT DATE: 04/29/2017 Consultation DISCHARGE DATE: FAMILY PHYSICIAN: Griselda Mueller DO ATTENDING PHYSICIAN: WALTER ACE HEENT: Normal. NECK: Supple with no JVD, thyromegaly, lymphadenopathy, or carotid bruit. HEART: PMI is not well located. First and second heart sounds are regular. There are no added sounds or murmurs. CHEST: Chest examination reveals decreased breath sounds bilaterally. ABDOMEN: Soft, mildly diffusely tender. EXTREMITIES: Reveal trace edema. CENTRAL NERVOUS SYSTEM: Overall appears to be intact. ASSESSMENT: Recurrence of supraventricular tachycardia probably because of beta dami withdrawal. I will give IV amiodarone at this time, rule him out for [place], and recheck his echocardiogram and try to get hold of the warehouse stock clerk to see whether we can ablate him earlier than later. Again, I appreciate this opportunity to participate in the care of Mr. Palma. MD VICENTE ROMERO/mallory /[id number] d: 04/30/17 0001 t: 05/04/17 1644, CONSULTATION REPORT
--- NOTE | ~2017-04-29 | ECHO ---
Transthoracic Echocardiography Report (TTE) Demographics Patient Name YANCI GORMAN Date of Study 04/29/2017 Patient Number [id number] Visit Number [id number] Date of 1955 Room Number G6212 Gender Male Number Age 62 year(s) Referring Denise Funez Pcb Designer Flaquito Mata RVT Physician MD Physician Interpreting Denise Funez Tutoring Clinician Physician MD Supervising Ordering Denise Funez MD/MLP Physician MD Nurse Stress Hot Metal Mixer Operator Helper Conclusions Summary Technically difficult exam. The estimated left ventricular ejection fraction is 55-60%. Small clinically insignificant pericardial effusion. Procedure Type of Study TTE procedure:2D Echocardiogram. Procedure Date Date: 04/29/2017 Start: 06:23 PM Study Location: Inpatient Portable Technical Quality: Poor visualization due to poor acoustical window. Indications:Supraventricular Tachycardia. Patient Status: STAT HR: 140 bpm Contractility Score LV regional wall motion:(0-Non visualized 1-Normal 2-Hypokinesis 3-Akinesis 4-Dyskinesis 5-Aneurysm) Signature dtt: Dee Dee Walker dtd: 04/29/17 1823 Physician Self Edit
--- NOTE | ~2017-04-29 | ER ---
PATIENT'S NAME: YANCI GORMAN [facility] AGE: 62 Y [address] ROOM: [place] [address] LOCATION: GI ADMIT DATE: 04/29/2017 ER/Outpatient Report DISCHARGE DATE: FAMILY PHYSICIAN: Griselda Mueller DO ATTENDING PHYSICIAN: WALTER VINES Time of Arrival: 1320 hours. Time Seen: 1320 hours. IDENTIFICATION: A 62-year-old male. CHIEF COMPLAINT: Rapid heartbeat. HISTORY OF PRESENT ILLNESS: The patient is a 62-year-old male who was just discharged from the hospital yesterday. The patient had right colon cancer, status post right colon resection, aspiration of ascites, biopsy of peritoneum, and liver biopsy per Dr. Tan on April 20. The pathology reports show this to be adenocarcinoma grade 3 of the ascending colon, metastatic adenocarcinoma in 12 of 17 mesenteric lymph nodes. Liver biopsy was positive for metastatic adenocarcinoma and peritoneal biopsy was positive for metastatic adenocarcinoma. During the hospital stay, the patient had several episodes of SVT followed by Dr. Walker, but it was recommended for him to go to [facility] to discuss having an ablation. Today around 1230 hours, the patient developed rapid heart rate, he is short of breath, he does not feel good, he is diaphoretic, but he denies any chest pain. ALLERGIES: NO KNOWN DRUG ALLERGIES. CURRENT MEDICATIONS: 1. Amlodipine 10 mg daily. 2. Cefadroxil 500 mg daily. 3. Digoxin 250 mcg daily. 4. Fluoxetine 40 mg daily. 5. Metformin 500 mg b.i.d. with meals. 6. Propranolol 60 mg b.i.d. 7. Omeprazole 20 mg twice daily. 8. Aspirin 81 mg daily. 9. Iron 65 mg every day. 10. Multivitamin daily. 11. Ascorbic acid 500 mg t.i.d. 12. Alkalete 1 capsule twice daily. PATIENT'S NAME: YANCI GORMAN [facility] AGE: 62 Y [address] ROOM: [place] [address] LOCATION: GI ADMIT DATE: 04/29/2017 ER/Outpatient Report DISCHARGE DATE: FAMILY PHYSICIAN: Griselda Mueller DO ATTENDING PHYSICIAN: WALTER VINES 13. Ambrotose 2 tabs daily. 14. Cholecalciferol 1000 units daily. 15. Loratadine 10 mg daily. 16. Hydrocodone and acetaminophen 2 tablets q.4 hours p.r.n. 17. Afrin Mist twice daily as needed. 18. CPAP. 19. Atorvastatin 80 mg daily. MEDICAL PROBLEMS: Seasonal allergic rhinitis, history of atrial fibrillation, history of SVT, sleep apnea, DJD, osteomyelitis, gastroesophageal reflux disease, and right colon cancer. 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 SOCIAL HISTORY: The patient is . Lives in [place]. Tobacco use, denies. Alcohol use, denies. Drug use, denies. FAMILY HISTORY: No pertinent family history identified. REVIEW OF SYSTEMS: All systems reviewed and negative other than what is noted in the HPI. PHYSICAL EXAMINATION: GENERAL: The patient is a 62-year-old male who appears older than his stated age, very pale and diaphoretic on arrival. VITAL SIGNS: Weight 104 kg, blood pressure 133/77, pulse 152, respirations 22, temperature 97, and saturations 93% on 4 L of O2 per nasal cannula which he has been on since he was discharged home. He was 88% on room air. HEENT: Head: Normocephalic. Eyes: Pupils equal and reactive to light and accommodation. Extraocular movements intact. Nose: Mucosa pink. No lesions. Mouth: No lesions. Pharynx benign. NECK: Supple. No lymphadenopathy. LUNGS: Clear to auscultation. Diminished in the bases. HEART: Tachycardia with a regular rhythm. ABDOMEN: Bowel sounds present. Soft, nondistended. Minimally tender to palpation. Incision clean, dry, and intact with hari. No rebound or guarding. EXTREMITIES: He has trace to 1+ lower extremity edema. No calf tenderness. NEURO: The patient is alert and oriented x4. Cranial nerves 2 through 12 grossly intact. Motor strength 5/5 throughout. Sensation is intact to light PATIENT'S NAME: YANCI GORMAN [facility] AGE: 62 Y [address] ROOM: [place] [address] LOCATION: [facility] ADMIT DATE: 04/29/2017 ER/Outpatient Report DISCHARGE DATE: FAMILY PHYSICIAN: Griselda Mueller DO ATTENDING PHYSICIAN: WALTER VINES. Motor strength 5/5 throughout. EMERGENCY DEPARTMENT COURSE: An IV was initiated. Labs were drawn. An EKG was obtained. SVT at a rate of 145 beats per minute. Diffuse ST-T wave changes. Digoxin level 0.54. ProBNP 337. D-dimer elevated at 15.85. Sodium 133, potassium 3.4, chloride 97, CO2 26, BUN 14, creatinine 0.6, and blood sugar 137. Liver enzymes elevated. Alkaline phosphatase 280, AST 101. Cardiac enzymes negative. Magnesium 2.2. Hemoglobin 12.5, hematocrit 39.2, platelets 561, and white count 14.5 with 81% neutrophils. The patient was given adenosine 6 mg IV and did pause and converted to sinus rhythm, but just briefly. A second dose of 6 mg was given and he did go to sinus rhythm, remained in sinus rhythm in the low 100s for approximately 1 hour and then he again went back to SVT rapid rate 147, was again given adenosine 6 mg with just temporary conversion to sinus rhythm, immediately went back into the SVT. After discussion with Dr. Vines and Dr. Walker, he was given digoxin 0.25 mg IV, Lasix 20 mg IV which was repeated for a total of 40 mg. Initial chest x-ray, 1 view: Increased pulmonary vascularity. CT PE protocol: No CT findings of PE, large bilateral pleural fluid collections with adjacent lung consolidation, diffuse reticulonodular opacity in the parenchyma of both lungs which could reflect extensive neoplastic involvement, interstitial edema or infiltrate could contribute mediastinal and bilateral hilar adenopathy, small pericardial effusion, free fluid in the abdomen increased in volume since prior imaging, possible neoplastic liver involvement. IMPRESSION: 1. Supraventricular tachycardia. Discussed with Dr. Walker multiple times while the patient was here in the emergency room. Dr. Walker will consult. Dr. Vines will admit the patient to the hospital. 2. Metastatic adenocarcinoma of the colon. 3. Large bilateral pleural fluid collections. ER COURSE: As noted above. PLAN: For admission to PCU tele. The patient remained in guarded but stable condition throughout his stay here in the emergency room, and the patient remained chest pain-free and blood pressure of 131/76. Dr. Vines evaluated the patient in the emergency room. Second set of cardiac enzymes was obtained while he was here in the ER. Troponin I less than 0.040. 60 minutes of critical care was provided with this patient in the emergency room. PATIENT'S NAME: YANCI GORMAN [facility] AGE: 62 Y [address] ROOM: [place] [address] LOCATION: [facility] ADMIT DATE: 04/29/2017 ER/Outpatient Report DISCHARGE DATE: FAMILY PHYSICIAN: Griselda Mueller DO ATTENDING PHYSICIAN: WALTER VINES MD SHELLEY BRADEN/mallory /[id number] d: 04/29/17 2338 t: 04/30/17 0712, OUTPATIENT REPORT
--- NOTE | ~2017-04-29 | OR ---
PATIENT'S NAME: YANCI GORMAN [facility] AGE: 62 Y [address] ROOM: [place] [address] LOCATION: [facility] ADMIT DATE: 04/29/2017 OR/Procedure Report DISCHARGE DATE: FAMILY PHYSICIAN: Griselda Mueller DO ATTENDING PHYSICIAN: WALTER VINES SURGEON: Dee Dee Walker MD POULTRY FARM SUPERVISOR: DATE OF PROCEDURE: 04/29/2017 Cardioversion Report INDICATION: SVT with a heart rate of 140, with the patient not feeling well and sweating and requiring more oxygen. DESCRIPTION OF PROCEDURE: After obtaining an informed consent, sedation was given by the nurse financial analyst accountant. Cardioversion was performed using 250 joules with the AP paddle placement in a single shock to regular sinus rhythm. The patient tolerated the procedure well and there were no complications noted. MD VICENTE ROMERO/mallory /[id number] d: 04/29/172356 t: 05/04/17 1646, OPERATIVE SUMMARY
--- NOTE | ~2017-04-29 | HP ---
PATIENT'S NAME: YANCI GORMAN [facility] AGE: 62 Y [address] ROOM: [place] [address] LOCATION: GICU ADMIT DATE: 04/29/2017 History & Physical DISCHARGE DATE: FAMILY PHYSICIAN: Griselda Mueller DO ATTENDING PHYSICIAN: WALTER VINES DATE OF SERVICE: CHIEF COMPLAINT: Palpitations, SVT. HISTORY OF PRESENT ILLNESS: This is a 62-year-old male with history of recurrent SVTs, hypertension, recently diagnosed with metastatic adenocarcinoma of the colon, status post resection just recently, who presents to the emergency room today with complaints of palpitations. The patient reports that shortly after lunch today, he started feeling sensation of racing of his heart, which is something recurrent and has had long history of SVTs. The patient during his hospitalization last week following a surgery was also noted to have recurrent SVTs, which were managed symptomatically and had been in the works to get an outpatient workup and planned ablation. The patient returns today with recurrent symptoms. The patient also complains of increasing shortness of breath as well and mentions some minimal cough but denies any fever or chills related to this. The patient also complains of overall generalized fatigue, weakness, and failure to thrive. As far as his cancer, the patient is recovering from the surgery, and the plan is to pursue chemo if and when he recovers adequately from surgery. Dr. Tan is his surgeon, and he is closely following up with him in that regard. The patient otherwise does report diminished appetite but no nausea, vomiting, or diarrhea reported. No dysuria, frequency, urination symptoms reported as well. PAST MEDICAL HISTORY: 1. Hypertension. 2. Metastatic colon cancer, status post resection. 3. Type 2 diabetes. 4. History of SVTs. 5. GERD. SOCIAL HISTORY: The patient is . Denies use of excessive alcohol or drugs. FAMILY HISTORY: Denies any reports of premature coronary artery disease in family. REVIEW OF SYSTEMS: PATIENT'S NAME: YANCI GORMAN [facility] AGE: 62 Y [address] ROOM: [place] [address] LOCATION: [facility] ADMIT DATE: 04/29/2017 History & Physical DISCHARGE DATE: FAMILY PHYSICIAN: Griselda Mueller DO ATTENDING PHYSICIAN: WALTER VINES Complete review of systems was conducted in all systems and were all negative except as described in the HPI. PHYSICAL EXAMINATION: VITAL SIGNS: Blood pressure 160s over 80s, heart rate in 140 and 160 at the time of my evaluation, respiratory rate 22, and saturating 95% on 2 L of oxygen per nasal cannula. GENERAL: The patient is ill appearing and lethargic, otherwise awake, alert, and oriented. HEENT: The patient exhibits somewhat dry mucous membranes and has some conjunctival pallor but no scleral icterus noted. SKIN: Some mild venous insufficiency with skin changes of the bilateral lower extremities noted. LUNGS: Diminished breath sounds bilaterally as well as diffuse coarse breath sounds, but no wheezing, rales, or rhonchi noted. HEART: Tachycardic, S1 and S2, and regular. ABDOMEN: Mildly tender. Mild distention. Midline surgical scar noted. Positive bowel sounds. MUSCULOSKELETAL: No joint redness, effusion, or swelling noted. NEUROLOGIC: Grossly nonfocal. LABORATORY DATA: Labs reviewed. Significant ones include leukocytosis 14,000. ASSESSMENT AND PLAN: 1. Sustained supraventricular tachycardias. Does have complaints of palpitations but otherwise blood pressure and other vital signs are stable. The patient has long history of supraventricular tachycardias including having few episodes during his last hospitalization last week following his abdominal surgery. The patient was given adenosine 3 times in the ED, it was entirely slowing down the heart rate. The patient was given a dose of IV digoxin and Dr. Walker is following him. The patient had plans to be seen as an outpatient for potential ablation. We will follow along Cardiology's recommendations, and the patient is well known to Dr. Walker as well. 2. Large bilateral pleural effusions. This appears to be related to the patient's abdominal surgery and did not appear to have any clear signs and symptoms of an infectious process. As the white count of 14,000, we will continue to monitor, and I will start him on some p.o. Lasix and continue to monitor progress clinically. We will follow along clinically as far as his leukocytosis and a fever curve to indicate any suspicion for an infectious process underlying. 3. Metastatic colon cancer, status post resection recently. The patient closely follows with Dr. Tan. Plan as of right now appears to pursue chemo once the patient recovers from surgery. PATIENT'S NAME: YANCI GORMAN [facility] AGE: 62 Y [address] ROOM: [place] [address] LOCATION: [facility] ADMIT DATE: 04/29/2017 History & Physical DISCHARGE DATE: FAMILY PHYSICIAN: Griselda Mueller DO ATTENDING PHYSICIAN: WALTER VINES 4. Hypertension. We will keep the close eye on the patient's vital signs and blood pressures and continue his home blood pressure medicines. 5. Type 2 diabetes. We will hold his home metformin and use sliding scale insulin and monitor him. 6. Deep venous thrombosis prophylaxis. We will use heparin 5000 units t.i.d. MD ROSIE CASTILLO/mallory /[id number] D: [id number] T: [id number] HISTORY & PHYSICAL
[~2017-04-29 13:20] MED LIST changes: +LIPITOR80 MG PO
[2017-04-29 13:35] LABS: BASOPHIL % 0.1 %; EOSINOPHIL # 0.1 K/uL (0.0-0.5); EOSINOPHIL % 0.3 %; HEMATOCRIT 39.2 % (37.0-53.0); HEMOGLOBIN 12.5 g/dL (11.0-16.0); IMMATURE GRANULOCYTE # 0.1 K/uL (0.0-0.3); IMMATURE GRANULOCYTE % 0.9 %; LYMPHOCYTE # 1.1 K/uL (0.8-4.0); LYMPHOCYTE % 7.6 %; MCH 26.8 pg (27.0-34.0); MCHC 31.9 gm/dL (32.0-36.5); MCV 83.9 fl (83.0-98.0); MONOCYTE # 1.4 K/uL (0.0-1.0); MPV 8.6 fl (9.4-12.4); NEUTROPHIL # (ANC) 11.7 K/uL (1.4-9.0); NEUTROPHIL % 81.1 %; NRBC % 0 /100WBC (0-0.00); PLATELET COUNT 561 K/uL (150-450); RBC 4.67 M/uL (3.50-5.50); RDW-CV 14.7 % (11.9-14.6); WBC 14.5 K/uL (4.0-11.0)
[2017-04-29 13:41] LABS: INR - (THERAPEUTIC) 1.21 (0.92-1.07); PROTIME 12.7 SECONDS (9.8-11.4); PTT 34 SECONDS (25-32)
[2017-04-29 13:51] LABS: ALBUMIN 2.3 gm/dL (3.5-5.0); ALK PHOS 280 IU/L (33-138); ALT 44 IU/L (12-78); ANION GAP 13.4 (10.0-19.0); AST 101 IU/L (10-40); BLOOD UREA NITROGEN 14 mg/dL (6-24); CALCIUM 8.4 mg/dL (8.5-10.5); CHLORIDE 97 mMol/L (96-110); CO2 26 mMol/L (22-32); CPK 55 IU/L (35-332); CREATININE 0.6 mg/dL (0.6-1.3); ESTIMATED GFR (MDRD EQUATION) > 60; MAGNESIUM 2.2 mg/dL (1.8-2.6); POTASSIUM 3.4 mMol/L (3.7-5.1); SODIUM 133 mMol/L (135-145); TOTAL BILIRUBIN 0.6 mg/dL (0.0-1.5); TOTAL PROTEIN 7.2 g/dL (6.0-8.4)
[2017-04-29 17:45] LABS: BICARBONATE 25.6 mmol/L (18.0-23.0); PCO2 36 mmHg (35-45); PO2 86 mmHg (80-90)
--- NOTE | 2017-04-29 17:56 | NUR ---
Patient arrived to PCU from ED at 1655. Patient transferred from ED cart to bed with 3 assist. Patient c/o weakness, SOB, and palpitations. Patient O2 sats 83% on 6L. RT notified and 15L nonrebreather mask applied. Rapid response called. Lasix 40mg IV given x1 per Dr Ace order. Transferred to ICU at 1720. Patients at bedside and aware of transfer. Report given to ESSIE Mendoza.
[2017-04-30 03:20] LABS: BASOPHIL % 0.1 %; EOSINOPHIL % 0.1 %; HEMATOCRIT 35.4 % (37.0-53.0); HEMOGLOBIN 11.1 g/dL (11.0-16.0); IMMATURE GRANULOCYTE # 0.1 K/uL (0.0-0.3); IMMATURE GRANULOCYTE % 0.9 %; LYMPHOCYTE # 0.5 K/uL (0.8-4.0); LYMPHOCYTE % 4.5 %; MCH 26.7 pg (27.0-34.0); MCHC 31.4 gm/dL (32.0-36.5); MCV 85.1 fl (83.0-98.0); MPV 8.5 fl (9.4-12.4); NEUTROPHIL # (ANC) 9.4 K/uL (1.4-9.0); NEUTROPHIL % 85.4 %; NRBC % 0 /100WBC (0-0.00); RBC 4.16 M/uL (3.50-5.50); RDW-CV 15.1 % (11.9-14.6)
[2017-04-30 03:33] LABS: PLATELET COUNT 289 K/uL (150-450)
[2017-04-30 03:52] LABS: ALK PHOS 235 IU/L (33-138); ALT 52 IU/L (12-78); AST 121 IU/L (10-40); BLOOD UREA NITROGEN 14 mg/dL (6-24); CALCIUM 7.9 mg/dL (8.5-10.5); CHLORIDE 103 mMol/L (96-110); CO2 25 mMol/L (22-32); CREATININE 0.6 mg/dL (0.6-1.3); ESTIMATED GFR (MDRD EQUATION) > 60; MAGNESIUM 2.4 mg/dL (1.8-2.6); SODIUM 136 mMol/L (135-145); TOTAL BILIRUBIN 0.7 mg/dL (0.0-1.5); TOTAL PROTEIN 6.4 g/dL (6.0-8.4)
[2017-04-30 03:54] LABS: ALBUMIN 1.9 gm/dL (3.5-5.0); ANION GAP 12.4 (10.0-19.0); POTASSIUM 4.4 mMol/L (3.7-5.1)
--- NOTE | 2017-04-30 04:16 | NUR ---
Significant Event: Patient given 300mg of amiodarone for HR's of 160's, Afib with RVR [id number], HR's decreased down to 140's. Cardioversion done at 1912 with 250 joules, HR's decreased down into the 90's and have maintained throughout the night. Amiodarone gtt started at 1900, currently at 0.5mg/hr. Lasix gtt started at 5mg/hr. Currently on Bipap at 40% to keep o2 sats >90%. Tmax 99.4. Scott to DD with adeq UOP. [place] given x2 for pain in abd, recent abd surgery. Follow up:possible transfer to [place] for ablation.
--- NOTE | 2017-04-30 15:16 | NUR ---
Stopped in to visit with Tal, his and the rest of the family at bedside. I am familiar with them from him recent stay just this week at [facility]. tells me that they went home and "he just started to feel bad again so here we are." She also says that according to doctors, they are planning on sending Tal to [facility] in [place] on Wednesday for Abilation procedure. They are all in agreement with transfering. Gave resources on [facility] and possible places to stay while she was down there. Tal and family denied any other questions needs or concerns. I also made sure that his chart had the proper dismissal paperwork on it for Sundays' transfer to [facility], packet was also started. Called down to EMS, talked with Chelsea, to give them a heads up that they might have a transfer to [facility] on Wednesday. She states she will write it down and put it on the books. CM to continue to follow and assist.
--- NOTE | 2017-04-30 16:50 | NUR ---
Significant Event: Patient is alert and oriented X3. Heart rate has remained 80-90's in sinus rhythm since cardioversion last night. Amiodarone continues at 0.5mg/min. Lasix gtt increased to 10mg/hr today and urine output is 150-300ml/hr. Blood pressure has tolerated. Plan will be continue to [place] and hopefully transfer to [facility] on Wednesday. Follow up: Susan
--- NOTE | 2017-05-01 04:33 | NUR ---
Significant Event: AAOx3. Moves spontaneously and to command, equal moderate strength throughout. Patient resting in bed throughout shift, turn Q2Hrs. PERRLA 3mm brisk. Systolic 140-170's, HR 90-100's, 1-2+ edema generalized, 1+ pedal pulses. Lung sounds clear and diminished in lower lobes, on BiPAP 30% FiO2 while sleeping otherwise 6L via [place]. on days to keep sats >90%. B.S. active, one large BM this shift. Sutures intact to abdomen, mid-line well approximated and open to air. C/O LUQ mid-line abdominal pain relieved by [place], 2 tabs given at 0230 and Dilaudid IV 0.2mg IVP. PIV L) AC infusing Amiodarone 0.5mg/min. Lasix infusing R) AC 10mL/hr. Scott intact draining anders urine, adequate hourly output 100-300. ADA diet, accuchecks AC/HS. Follow up: CXR this AM, plan for dismissal to [facility] on Wednesday for ablation. Susan.
[2017-05-01 05:24] LABS: HEMATOCRIT 35.3 % (37.0-53.0); HEMOGLOBIN 11.3 g/dL (11.0-16.0); MCV 84.4 fl (83.0-98.0); MPV 8.5 fl (9.4-12.4); PLATELET COUNT 276 K/uL (150-450); RBC 4.18 M/uL (3.50-5.50); RDW-CV 15.3 % (11.9-14.6)
[2017-05-01 05:38] LABS: BLOOD UREA NITROGEN 18 mg/dL (6-24); CALCIUM 7.9 mg/dL (8.5-10.5); CHLORIDE 99 mMol/L (96-110); CO2 28 mMol/L (22-32); CREATININE 0.8 mg/dL (0.6-1.3); ESTIMATED GFR (MDRD EQUATION) > 60; SODIUM 138 mMol/L (135-145)
[2017-05-01 06:29] LABS: ABSOLUTE NEUTROPHIL CT (ANC) 12.3 K/uL (1.4-9.0); LYMPHOCYTE # 0.4 K/uL (0.8-4.0); LYMPHOCYTE % 3 %; MONOCYTE # 1.3 K/uL (0.0-1.0); SEGMENTED NEUTROPHIL # 12.3 K/uL (1.4-9.0); SEGMENTED NEUTROPHIL % 88 %
[2017-05-01 09:35] LABS: PCO2 38 mmHg (35-45)
[2017-05-01 09:36] LABS: PO2 61 mmHg (80-90)
--- NOTE | 2017-05-01 17:06 | NUR ---
SIGNIFICANT EVENT: PATIENT ALERT AND ORIENTED X3. PUPILS EQUAL AND REACTIVE. FOLLOWS COMMANDS IN ALL 4 EXTREMITIES, EQUAL STRENGTH THROUGHOUT. BEDREST. REPOSITIONED EVERY 2 HOURS. PATIENT WAS IN SVT HR 150S-160S AT THE BEGINING OF THE SHIFT, CARDIZEM DRIP INITIAITED, HR DOWN TO 140-150S. PATIENT CONVERTED TO SINUS TACHY HR 110S POST ADENOSINE 6MG IVP ADMINISTRATION AT BEDSIDE, NO COMPLICATIONS. HR NO 100-110S. PULSES PALPABLE THROUGHOUT. CL[place]ORD PRESENT. PATIENT ON LASIX DRIP AT 10MG/HR, CARDIZEM DRIP AT 5MG/HR, AMIODARONE DRIP AT MAINTAINANCE DOSE. AFEBILE. BP STABLE, 140-150S, MAP>65. PATIENT TITRATED FROM 40% BIPAP TO 50% FIO2 HIGH FLOW NASAL CANNULA, SATS MID 90S. SPUTUM AND BLOOD CULTURES SENT. BOWEL SOUNDS PRESENT, NO BM. VELA INTACT, POLYURIA R.T DIURITIC ADMINISTRATION. NO NEW SKIN ISSUES NOTED. REFUSED BATH, FOLLOW UP: CONTINUE TO MONITOR
[2017-05-02 05:28] LABS: HEMATOCRIT 37.9 % (37.0-53.0); MCH 26.5 pg (27.0-34.0); MCHC 31.7 gm/dL (32.0-36.5); MCV 83.8 fl (83.0-98.0); MPV 8.8 fl (9.4-12.4); PLATELET COUNT 313 K/uL (150-450); RBC 4.52 M/uL (3.50-5.50); RDW-CV 15.4 % (11.9-14.6)
[2017-05-02 05:32] LABS: WBC 18.1 K/uL (4.0-11.0)
[2017-05-02 05:47] LABS: ANION GAP 19.2 (10.0-19.0); BLOOD UREA NITROGEN 33 mg/dL (6-24); CALCIUM 8.2 mg/dL (8.5-10.5); CHLORIDE 91 mMol/L (96-110); CO2 27 mMol/L (22-32); CREATININE 1.2 mg/dL (0.6-1.3); ESTIMATED GFR (MDRD EQUATION) > 60; POTASSIUM 3.2 mMol/L (3.7-5.1); SODIUM 134 mMol/L (135-145)
[2017-05-02 06:04] LABS: ABSOLUTE NEUTROPHIL CT (ANC) 17.2 K/uL (1.4-9.0); LYMPHOCYTE # 0.5 K/uL (0.8-4.0); LYMPHOCYTE % 3 %; MONOCYTE # 0.4 K/uL (0.0-1.0); SEGMENTED NEUTROPHIL # 17.2 K/uL (1.4-9.0); SEGMENTED NEUTROPHIL % 95 %
--- NOTE | 2017-05-02 06:53 | NUR ---
Significant Event: Patient is A/O, c/o LUQ abd pain, PRN [place] et Dilaudid given. HR Sinus Tachy, bwtween 100-127, see flow sheet for Cardizem titrations. Patient anxious at times, unable to tolerate Bipap, Cpap or Hi-Flow NC for extended periods of time. States "I can't catch my breath" 6L via NC at end of shift, O2 sats occasionally fall to upper 80s. Sips and chips given. AM procal 8.8 NO for IV Vanco per Dr Gipson. K 3.2, NO for 60mEq oral K per Suri Irby, TEAROOM HOSTESS. Follow up: Transfer to [facility] for ablation, monitor for s/s of infection
--- NOTE | 2017-05-02 13:20 | NUR ---
TRANSFER NOTE AND SHIFT SUMMARY: PATIENT ALERT, ORIENTED X3. OPENS EYES SPONTANEOUSLY AND TO VOICE. PUPILS EQUAL AND REACTIVE. SPEECH IS APPROPRIATE. PATIENT MOVES ALL 4 EXTREMITIES SPONTANEOUSLY AND TO COMMANDS. EQUAL STRENGTH THROUGHOUT. DENIES ANY NUMBNESS OR TINGLING. PATIENT HAS BEEN IN SINUS RHYTHM, SLIGHTLY TACHY. HR 100-110S. CARDIZEM DRIP CURRENTLY AT 10MH/HR, AMIODARONE DRIP AT 0.5MCG/HR. PULSES PALPABLE THROUGHOUT. DENIES ANY HEART PALPITATIONS. EDEMA PRESENT, LASIX DRIP AT 10MG/HR. MAX TEMP OF 101, DR SINCLAIR AWARE, ZYVOX, MEROPENEM, AND VANCO ADMINISTERED FOR ANTIBIOTICS. TYLENOL GIVEN FOR FEVER, DECREASE IN TEMP NOTED. PATIENT HAS BEEN ON 45-50% HIGH FLOW NASAL CANNULA, SATS LOWER TO MID 90S. PRODUCTIVE COUGH X1, RESP CULTURES SENT. BOWEL SOUNDS ACTIVE, NO BM TODAY. DECREASE IN APETITE NOTED. ICE CHIPS AND WATER TOLERATED WELL. VELA PRESENT, ADEQUATE URINE OUTPUT 60-150 ML/HR. NO NEW SKINS ISSUES NOTED. PATIENT REPOSITIONED EVERY 2 HOURS. R) AC INFUSING LASIX, L) AC INFUSING CARDIZEM AND AMIODARONE. NO COMPLICATIONS WITH IVS, GOOD BLOOD RETURN BILATERALLY. PATIENT TO BE TRANSPORTED TO [facility], FULL, PHONE-REPORT GIVEN TO JUDITH ([facility] SUPERVISOR KEYMODULE ASSEMBLY) AND TYPESETTING SUPERVISOR. FOLLOW UP: CONTINUE TO MONITOR
== END 2017-05-02 15:05 | disposition hospice, home (50) | DRG 308 ==
LOC: GMED 13:20 → GPCU 14:14 → GICU 17:26
PROVIDERS: Family Medicine; Internal Medicine; Internal Medicine Interventional Cardiology; ADMIT Internal Medicine
DX: I47.1 Supraventricular tachycardia (principal); I50.31 Acute diastolic (congestive) heart failure; J96.01 Acute respiratory failure with hypoxia; C18.9 Malignant neoplasm of colon, unspecified; K21.9 Gastro-esophageal reflux disease without esophagitis; E11.9 Type 2 diabetes mellitus without complications; I11.0 Hypertensive heart disease with heart failure; Z90.49 Acquired absence of other specified parts of digestive tract; Z87.891 Personal history of nicotine dependence
CPT/HCPCS: J0153; J0171; J0282; J0461; J1120; J1160; J1170; J1644; J1650; J1940; J2020; J2185; J2405; J3010; J3370; J3475; J3480; J7030; J7040; J7050; J7060; Q9967

== ENCOUNTER → 2017-05-02 | Outpatient (CLI) | payer MEDICARE | END | disposition disaster alternative care site (69) | LOC: GAIR 13:20 → GAMB 13:20 | DX: I47.1 Supraventricular tachycardia (principal); C18.9 Malignant neoplasm of colon, unspecified; M19.90 Unspecified osteoarthritis, unspecified site; I48.91 Unspecified atrial fibrillation; K21.9 Gastro-esophageal reflux disease without esophagitis; R06.02 Shortness of breath; F32.9 Major depressive disorder, single episode, unspecified; Z79.82 Long term (current) use of aspirin; Z79.84 Long term (current) use of oral hypoglycemic drugs; Z79.891 Long term (current) use of opiate analgesic; Z79.899 Other long term (current) drug therapy | CPT/HCPCS: A0422; A0425; A0426 ==